=== PATIENT | male | born 1945 | race Caucasian/White ===

== ENCOUNTER → 2021-01-02 16:14 | Outpatient (CLI) | payer MEDICARE, SELFPAY | PROVIDERS: PCP Family Medicine; Visit Provider Nurse Practitioner | DX: Z20.822 Contact with and (suspected) exposure to COVID-19 (principal); U07.1 COVID-19 | CPT/HCPCS: C9803; U0003; U0005 ==

== ENCOUNTER → 2021-08-25 09:39 | Outpatient (CLI) | payer MEDICARE, SELFPAY | PROVIDERS: PCP Family Medicine; Visit Provider Physician Assistant | DX: I48.0 Paroxysmal atrial fibrillation (principal); I10 Essential (primary) hypertension; E78.5 Hyperlipidemia, unspecified; E11.69 Type 2 diabetes mellitus with other specified complication; Z79.84 Long term (current) use of oral hypoglycemic drugs | CPT/HCPCS: 93225; 93226 ==

== ENCOUNTER → 2021-08-29 09:10 | Outpatient (CLI) | payer MEDICARE, SELFPAY ==
--- NOTE | 2021-08-29 09:11 | CA_ITS ---
APPROVED REPORT EXAM: Comprehensive 2D, Doppler, and color-flow Echocardiogram Psychological Tests Sales Agent: Maribell Allred, RCS, RVS Ht: 6 ft 3 in Wt: 194lbs BSA: 2.17 BP: 153/75 mmHg Indications: PAF, ABN EKG, HTN, DM, PALPITATIONS 2D Dimensions IVSd 0.91 cm LVEF (Visual) 69.10 % PWd 0.92 cm LA Volume 46.90 mL LVDd 4.61 cm LA Volume Index 21.802197 mL/m2 (M/F) 16-34 LVDs 2.78 cm Aortic Root 2.82 cm Left Atrium 3.67 cm LVOT 1.95 cm (M/F) 1.5-2.5 M-Mode Dimensions LA Diam 3.67 cm (1.9-4.0) Ao Diam 3.22 cm (2.0-3.7) EPSs 0.42 cm TAPSE 1.70 (<1.7) LV Diastology E Decel Time 380.00 (160-240 msec) E/A Ratio 0.77 MED E' 7.30 (< 7 cm/sec) MED A' 9.80 cm/s E'/MED E' Ratio 10.05 (>14) LAT E' 11.70 (<10 cm/sec) LAT A' 12.40 cm/s E/LAT E' Ratio 6.27 (>14) Aortic Valve LVOT Max 157.00 (70-110 cm/s) LVOT VTI 34.48 cm AoV Peak Regan. 213.00 (50-130 cm/s) AO Peak GR. 18.10 mmHg AO Mean GR. 8.90 (<5 mmHg) AO VTI 38.07 (18-25 cm) ARTURO (VTI) 2.70 (2.5-4.5 cm2) Mitral Valve MV A Velocity 95.00 (40-130 cm/s) E/A Ratio 0.77 MV Decel. Time 380.00 (160-240 ms) MV Mean Gr. 2.10 (<2mmHg) Pulmonary Valve PV Peak Velocity 107.00 (50-150 cm/s) Left Ventricle Left atrium is mildly enlarged, left ventricle is normal size, mild concentric left ventricular hypertrophy, estimated ejection fraction 55% with no regional wall motion abnormality, grade 1 diastolic dysfunction seen without tissue Doppler evidence of raise left atrial pressure. Right Ventricle Right atrium and right ventricle are normal size and contractility. Aortic Valve Valve is thickened and calcified without significant aortic stenosis or aortic insufficiency. Mitral Valve Valve leaflets are minimally thickened, there is mild mitral regurgitation. Tricuspid Valve Tricuspid grossly normal, there is mild tricuspid regurgitation, tricuspid regurgitation jet velocity is inadequate for calculation of the right ventricular systolic pressure. Pulmonic Valve Pulmonic valve is poorly visualized. Great Vessels Aortic root is normal size. Inferior vena cava normal size with normal inspiratory collapse. Pericardium No significant pericardial effusion noted. Conclusion 1. Mild biatrial enlargement, normal left ventricular size, mild concentric left ventricular hypertrophy, estimated ejection fraction 55% with no regional wall motion abnormality, grade 1 diastolic dysfunction seen without tissue Doppler evidence of raise left atrial pressure. 2. Thickened and calcified aortic valve without significant aortic stenosis or aortic insufficiency. 3. Mild mitral and tricuspid regurgitation. 4. No significant pericardial effusion. 5. Inferior vena cava normal size with normal inspiratory collapse. Electronically signed by : Blayne Farley MD 08/29/2021 15:10:46
== END ==
PROVIDERS: PCP Family Medicine; Visit Provider Physician Assistant
DX: E11.69 Type 2 diabetes mellitus with other specified complication (principal); E78.5 Hyperlipidemia, unspecified; I10 Essential (primary) hypertension; I48.0 Paroxysmal atrial fibrillation; R94.31 Abnormal electrocardiogram [ECG] [EKG]; R42 Dizziness and giddiness; Z79.84 Long term (current) use of oral hypoglycemic drugs
CPT/HCPCS: 93306

== ENCOUNTER → 2022-06-09 09:27 | Outpatient (CLI) | payer MEDICARE, SELFPAY ==
--- NOTE | 2022-06-09 09:28 | MR_ITS ---
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 The midline structures appear intact. There is no evidence of Chiari malformation. There is moderate atrophy. 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 On diffusion-weighted images there is no evidence of restricted diffusion. The visualized paranasal sinuses demonstrate normal signal voids. The seventh and eighth nerve root complexes are intact. 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 Reviewed, Interpreted and Dictated by Shady Llamas MD Transcribed by Lisa Soto Authenticated and [facility]
== END ==
PROVIDERS: PCP Family Medicine; Visit Provider Specialist
DX: I48.0 Paroxysmal atrial fibrillation (principal)
CPT/HCPCS: 70551